=== PATIENT | female | born 1945 | race Caucasian/White ===

== ENCOUNTER → 2017-05-11 | Day surgery (SDC) | payer OTHER, MEDICAID ==
[~2017-05-11] MED LIST: ACETAMINOPHEN 1000 MG/100 ML 100 ML IV ONE; ALBU8I INH; AMLO2.5T PO; BUPIVACAINE/EPINEPHRINE 0.5% PF 30 ML VIAL ONE; CALC600T34 PO; COUM1TAB PO; CYCL-36 PO; HYDR-2768 PO; ISOSULFAN BLUE 50 MG/5 ML VIAL SQ ONE; LACTATED RINGER'S 1000 ML INJ 1,000 ML ONE; LIDOCAINE 1%/EPINEPHrine 1:100,000 SOLN 50 ML VIAL ONE; LISI-366 PO; LORTA5 PO; MIDAZOLAM HCL 2 MG/2 ML VIAL ONE; ONDANSETRON HCL 4 MG/2 ML VIAL IV PUSH ONE; PRAV20 PO; PREG75 PO; PROPOFOL 200 MG/20 ML AMP IV ONE; VITA-13 PO; VITA10002 PO; Z.0.COMMODE-3:1; Z.0.WALKERFRONT; ceFAZolin 2 GM PREMIX 50 ML ONE
--- NOTE | 2017-05-12 10:44 | MP ---
cc: CHARLIE OCHOA M.D., JOSEPH D. M.D. DATE OF PROCEDURE 05/11/2017 PROCEDURE Left breast needle-localized wide local excision. PREOPERATIVE DIAGNOSIS Invasive lobular carcinoma left breast. POSTOPERATIVE DIAGNOSIS Invasive lobular carcinoma left breast. ANESTHESIA LMA. SURGEON MD Antoine ESTIMATED BLOOD LOSS 10 mL. FLUIDS 600 mL crystalloid. COMPLICATIONS None. DRAINS None. SPECIMEN Left breast needle-localized tissue to pathology. PROCEDURE IN DETAIL Please see Dr. Huerta's note for the beginning portion of the dictation. The undersigned scrubbed in to assist and I performed the second portion of the procedure. The sentinel lymph nodes had already been removed and the axilla was examined and was seen to be hemostatic. Careful examination of the axilla revealed no further activity above background. The wound was then closed with interrupted 3-0 Vicryl suture and 4-0 Vicryl in a running subcuticular fashion. Attention was then turned to the breast and this was infiltrated with local anesthetic. A circumareolar incision was made between the nipple-areolar complex and the needle insertion site from approximately the 3 o'clock to 12 o'clock position on the breast. The dissection was carried out laterally to the needle which was cut at the skin and brought into the wound. A sphere of tissue was removed including the needle down to the muscle. The specimen was oriented with silk sutures and passed off the table. The specimen was sent for specimen ultrasound which demonstrated the lesion in question and the clip to be present within the specimen. While awaiting radiologic confirmation, the wound was made hemostatic with electrocautery. The remaining local anesthetic was injected into the wound cavity and the wound then closed in two layers with interrupted 3-0 Vicryl suture and 4-0 Vicryl in a running subcuticular fashion. Both wounds were dressed with Steri-Strips. The patient was taken back to the recovery room in stable condition. Sponge, needle and instrument counts were reported be correct. MD ALICIA Garcia/SSB /12:16 PM /10:38 AM CHRISTIAN
--- NOTE | 2017-05-13 13:52 | TN ---
cc: KAELA HUERTA DATE OF SURGERY: 05/11/2017 PREOPERATIVE DIAGNOSIS Left breast cancer. POSTOPERATIVE DIAGNOSIS Left breast cancer. PROCEDURE PERFORMED Injection of Lymphazurin blue dye with identification of two sentinel nodes. ANESTHESIA General. SURGEON Dr. Huerta. INDICATIONS This is a pleasant lady who has infiltrating lobular carcinoma of the left breast. Plans were made for breast conservation. PROCEDURE The patient was taken to the operating room and placed in the supine position. After endotracheal anesthesia her left breast and axillary region is prepped with Betadine after injecting 6 ccs of Lymphazurin blue dye into the needle track sarah where the guidewire was identifying the cancer on the upper outer quadrant of the left breast. We then make a curvilinear incision in the axillary region and a hot spot is identified, identifying sentinel node which is blue and hot with an ex vivo count of [id number]. A smaller node which is blue as well has an ex vivo count of 238. No other lymphadenopathy is appreciated and no other counts were noted. We then closed the deep layer and this axillary region and the skin is closed with a 4-0 Vicryl. This portion of the procedure then, I needed to leave the room and Dr. Schultz came in to perform the quadrantectomy in my absence after filling him in on the details of her surgery. See his separate operative note for his details of the procedure of the quadrantectomy in the upper outer quadrant. Family was then notified that I had to leave the room and Dr. Schultz completed the procedure. The patient tolerated the procedure well and Dr. Schultz provided the immediate postop care. Kaela Huerta MD JDB/TLL /1:20 PM /1:41 PM
== END | disposition home or self-care (01) ==
LOC: ESDC 06:18
PROVIDERS: ATTEND Surgery
DX: C50.912 Malignant neoplasm of unspecified site of left female breast (principal)
CPT/HCPCS: 00400; 01610; 19125; 38525; 38792; 88307; J0131; J0690; J2250; J2405; J3010; J7120; Q9968